=== PATIENT | female | born 1970 | race Caucasian/White ===

== ENCOUNTER → 2017-02-20 | Outpatient (CLI) | payer MEDICAID ==
--- NOTE | 2017-02-20 14:34 | RADIOLOGY REPORT (SQ) ---
EXAM DESCRIPTION: CTA CHEST COMPLETED DATE/TIME: 02/20/2017 2:12 pm REASON FOR STUDY: SOB (R06.02) R06.02 SHORTNESS OF BREATH M25.512 PAIN IN LEFT SHOULDER COMPARISON: None. TECHNIQUE: CT scan of the chest performed using helical scanning technique with dynamic intravenous contrast injection. Images reviewed with lung, soft tissue and bone windows. Reconstructed coronal and sagittal MPR images reviewed. Additional 3 dimensional post-processing performed to develop Maximal Intensity Projection images (MA P). All images stored on PACS. All CT scanners at this facility use dose modulation, iterative reconstruction, and/or weight based d osing when appropriate to reduce radiation dose to as low as reasonably achievable (ALARA). [facility]: Dose Right [facility]: CareDose [facility]: Dose Right [facility]: Teradose 4D [facility]: COH CONTRAST TYPE AND DOSE: contrast/concentration: Isovue 370.00 mg/ml; Total Contrast Delivered: 77.0 ml; Total Saline Delivered: 105.0 ml RENAL FUNCTION: Creatinine 0.8. RADIATION DOSE: Up-to-date CT equipment and radiation dose reduction techniques were employed. CTDIv ol: 1.9 - 15.4 mGy. DLP: 547 mGy-cm. . LIMITATIONS: None. FINDINGS: LUNGS AND PLEURA: No masses, infiltrates, pneumothorax. No pleural effusions, calcificati ons. AORTA AND GREAT VESSELS: No aneurysm or dissection. HEART: No pericardial effusion. PULMONARY ARTERIES: No emboli visualized in the main pulmonary arteries or the segmental branches. HILAR AND MEDIASTINAL STRUCTURES: No identified masses or abnormal nodes. HARDWARE: None in the chest. UPPER ABDOMEN: No significant findings. Limited exam. THYROID AND OTHER SOFT TISSUES: No masses. No adenopathy. BONES: No acute or significant finding. 3D MIPS: Confirm above findings. OTHER: No other significant finding. IMPRESSION: NORMAL CTA OF THE CHEST. NO PULMONARY EMBOLI. TECHNICAL DOCUMENTATION: JOB ID: [id number] Quality ID # [id number]: Final reports with documentation of one or more dose reduction techniques (e.g., Au tomated exposure control, adjustment of the mA and/or kV according to patient size, use of iterative reconstruction technique) 2010 [employer]- All Rights Reserved
--- NOTE | 2017-02-20 15:23 | RADIOLOGY REPORT (SQ) ---
EXAM DESCRIPTION: SHOULDER LEFT 2 OR MORE VIEWS COMPLETED DATE/TIME: 02/20/2017 1:06 pm REASON FOR STUDY: PAIN IN LEFT SHOULDER (M25.512) R06.02 SHORTNESS OF BREATH M25.512 PAIN IN LEFT SHOULDER COMPARISON: None. NUMBER OF VIEWS: Three view. TECHNIQUE: Internal rotation, external rotation, and Y view images acquired of the left shoulder. LIMITATIONS: None. FINDINGS: MINERALIZATION: Normal. BONES: No acute fracture or dislocation. No worrisome bone lesions. No significant osteophytes. GLENOHUMERAL JOINT: No significant findings. ACROMIOCLAVICULAR JOINT: No large osteophytes. SOFT TISSUES: Calcification adjacent to the humeral neck. VISUALIZED RIBS, SPINE, AND LUNG: No other significant finding. OTHER: No other significant finding. IMPRESSION: CALCIFICATION ADJACENT TO THE HUMERAL NECK. NO SIGNIFICANT BONY FINDINGS TECHNICAL DOCUMENTATION: JOB ID: [id number] [employer]- All Rights Reserved
== END ==
LOC: RAD 12:26
PROVIDERS: ATTEND Internal Medicine
DX: R06.02 Shortness of breath (principal); M25.512 Pain in left shoulder
CPT/HCPCS: 71275; 82565

== ENCOUNTER → 2017-07-06 | Day surgery (SDC) | payer MEDICAID ==
--- NOTE | 2017-07-06 16:02 | RADIOLOGY REPORT (SQ) ---
EXAM DESCRIPTION: ARTHRO SHOULDER; FLUORO/NEEDLE PLACEMENT COMPLETED DATE/TIME: 07/06/2017 2:49 pm REASON FOR STUDY: ADHESIVE CAPSULITIS OF LEFT SHOULDER M75.02 ADHESIVE CAPSULITIS OF LEFT SHOULDER COMPARISON: Left shoulder plain films 02/20/2017 FLUOROSCOPY TIME: 0.4 minutes 1 digital radiographic image saved to PACS. LIMITATIONS: None. PROCEDURE: Procedure, risks, benefits and alternatives explained to patient who then gave written co nsent. The posterior left shoulder was marked and a time out was called for correct procedure verific ation. Posterior entry site marked using fluoroscopic guidance. Shoulder prepped and draped using s terile technique. Local anesthesia achieved using 8 mL of 1% lidocaine injection. 22 gauge spinal n eedle introduced into the joint space under direct fluoroscopic visualization. Non-ionic contrast ins tilled to confirm intra-articular position. Dilute gadolinium solution then injected. Needle removed and entry site covered with sterile bandage. No immediate complications noted. TECHNIQUE: Digital images acquired during fluoroscopy and stored on PACS. Patient immediately take n to the MR suite for additional imaging. INJECTION LOCATION: Posterior left shoulder. CONTRAST TYPE AND AMOUNT: 0.5 mL of Isovue-300 was injected to confirm intra-articular needle placeme nt. 10 mL of dilute gadolinium was injected for MR arthrogram IMPRESSION: SUCCESSFUL NEEDLE PLACEMENT AND INJECTION FOR LEFT SHOULDER MR ARTHROGRAM USING POSTERIO R APPROACH. COMMENT: Quality ID [id number]: Final reports for procedures using fluoroscopy that document radiation exp osure indices, or exposure time and number of fluorographic images (if radiation exposure indices are not available) TECHNICAL DOCUMENTATION: JOB ID: [id number] [employer]- All Rights Reserved
--- NOTE | 2017-07-07 08:22 | RADIOLOGY REPORT (SQ) ---
EXAM DESCRIPTION: MRI LT UPPER JOINT WITH COMPLETED DATE/TIME: 07/06/2017 3:26 pm REASON FOR STUDY: ADHESIVE CAPSULITIS OF LEFT SHOULDER M75.02 ADHESIVE CAPSULITIS OF LEFT SHOULDER COMPARISON: Radiographs from January. TECHNIQUE: Left shoulder images acquired and stored on PACS. Oblique coronal, oblique sagittal, and axial imaging to include fat sensitive sequences as T1, water sensitive sequences as FST2/STIR, and c ontrast sensitive sequences as FST1. LIMITATIONS: Mild motion, see below. FINDINGS: BONE MARROW: No marrow edema. Extensive fracture deformity through the anterior inferior glenoid. Regional small loose fragments. Loss of close to 50% of the glenoid articular surface. Mi ld flattening of the lateral humeral head. JOINT DISTENSION: Adequate. Additional sizable loose body measuring close to 1 cm in the inferior mahnaz int. AC JOINT: No widening. Moderate hypertrophic overgrowth. Slight anterior down slope of the acromion . Subacromial space looks relatively maintained, however. GLENOHUMERAL JOINT: As above. Humeral sided cartilage relatively maintained. ROTATOR CUFF: Mild undersurface fraying throughout the cuff. No full-thickness breech evident. LABRUM AND BICEPS LABRAL COMPLEX: Motion artifact somewhat limits evaluation of the labrum on the kaur coronal images. There appears to be at least some low grade fraying. No biceps disruption or dislo cation. There are loose bodies in the biceps sheath. INFERIOR LABRAL COMPLEX: Extensive angel Bankart injury throughout the anterior inferior glenoid with associated loss of anterior labral tissue relatively diffusely. ADJACENT SOFT TISSUES: No regional mass or axillary dissection. OTHER: No other significant finding. IMPRESSION: 1. Extensively abnormal glenoid, presumably related to the history of anterior dislocat ions. Loss of a large portion of the glenoid articular surface anteriorly and inferiorly. Numerous loose bodies in the joint. 2. Probable fraying in the superior labrum. Loose bodies are also noted in the biceps sheath. Biceps tendon intact. 3. AC arthropathy. TECHNICAL DOCUMENTATION: JOB ID: [id number] [employer]- All Rights Reserved
== END ==
LOC: RAD 13:49
PROVIDERS: ATTEND Orthopaedic Surgery
PROC: BP09ZZZ Plain Radiography of Left Shoulder (ICD-10-PCS; principal; 2017-07-06)
DX: M75.02 Adhesive capsulitis of left shoulder (principal); M19.012 Primary osteoarthritis, left shoulder; M24.012 Loose body in left shoulder
CPT/HCPCS: 73222; 73040; 77002; A9576

== ENCOUNTER → 2017-08-04 | Outpatient (CLI) | payer MEDICAID ==
--- NOTE | 2017-08-04 14:25 | RADIOLOGY REPORT (SQ) ---
EXAM DESCRIPTION: HAND LEFT 3 VIEWS COMPLETED DATE/TIME: 08/04/2017 1:40 pm REASON FOR STUDY: PAIN IN LEFT FINGER(S) M79.645 PAIN IN LEFT FINGER(S) COMPARISON: None. EXAM PARAMETERS: NUMBER OF VIEWS: Three views. TECHNIQUE: AP, lateral and oblique radiographic images acquired of the left hand. LIMITATIONS: None. FINDINGS: MINERALIZATION: Normal. BONES: No acute fracture or dislocation. No worrisome bone lesions. JOINTS: Joint space narrowing and bony spurring at the left 1st carpometacarpal joint from osteoarthr itis. SOFT TISSUES: No soft tissue swelling. No foreign body. OTHER: No other significant finding. IMPRESSION: No acute fracture or malalignment. Osteoarthritis at the 1st carpometacarpal joint TECHNICAL DOCUMENTATION: JOB ID: [id number] [employer]- All Rights Reserved
== END ==
LOC: OD 13:22
PROVIDERS: ATTEND Internal Medicine
DX: M79.645 Pain in left finger(s) (principal); M19.042 Primary osteoarthritis, left hand

== ENCOUNTER 2017-08-17 05:27 | Day surgery (SDC) | payer MEDICAID ==
[~2017-08-17 05:27] MED LIST: CEFAZOLIN 2 GM/D5W RTU 2 GM/50 ML RTUPB IV PRN
[2017-08-17] MEDS ORDERED: ALBUTEROL SULFATE 0.083% NEB 2.5 MG/3 ML AMPUL NEB ONE (05:55)
[2017-08-17 06:07] LABS: APPEARANCE,URINE CLOUDY; BILIRUBIN,URINE NEGATIVE (NEGATIVE); COLOR,URINE YELLOW; GLUCOSE, URINE NEGATIVE (NEGATIVE); KETONES,URINE NEGATIVE (NEGATIVE); LEUKOCYTE ESTERASE,URINE NEGATIVE (NEGATIVE); NITRITE,URINE NEGATIVE (NEGATIVE); PROTEIN,URINE NEGATIVE (NEGATIVE); UROBILINOGEN,URINE NEGATIVE mg/dL (<2.0)
--- NOTE | 2017-08-17 06:40 | RADIOLOGY REPORT (SQ) ---
EXAM DESCRIPTION: CHEST SINGLE VIEW CLINICAL HISTORY: preop COMPARISON: 04/09/2013 FINDINGS: Single frontal view of the chest. The cardiomediastinal silhouette has normal size and contour. No consolidation, pneumothorax, or pleural effusion. No displaced rib fractures identified. Upper abdominal soft tissues are unremarkable. Elevation the right hemidiaphragm is unchanged. IMPRESSION: 1. No acute pulmonary process identified.
[2017-08-17 06:48] LABS: ABSOLUTE BASOPHILS # (AUTO) 0.1 10^3/uL (0.0-0.2); ABSOLUTE EOSINOPHILS # (AUTO) 0.3 10^3/uL (0.0-0.6); ABSOLUTE LYMPHOCYTES (AUTO) 2.2 10^3/uL (0.5-4.7); ABSOLUTE MONOCYTES (AUTO) 0.6 10^3/uL (0.1-1.4); ABSOLUTE NEUT (AUTO) 6.5 10^3/uL (1.7-8.2); BASOPHILS % (AUTO) 1.5 % (0-2); EOSINOPHILS % (AUTO) 3.2 % (0-6); HEMATOCRIT 41.2 % (36.0-47.0); HEMOGLOBIN 14.1 g/dL (12.0-15.5); LYMPHOCYTES % (AUTO) 22.7 % (13-45); MEAN CORPUSCULAR HEMOGLOBIN 28.4 pg (27.0-33.4); MEAN CORPUSCULAR HGB CONC 34.1 g/dL (32.0-36.0); MEAN CORPUSCULAR VOLUME 83 fl (80-97); MONOCYTES % (AUTO) 5.8 % (3-13); PLATELET COUNT 262 10^3/uL (150-450); RED BLOOD COUNT 4.94 10^6/uL (3.72-5.28); SEGMENTED NEUTROPHILS % (AUTO) 66.8 % (42-78); TOTAL CELLS COUNTED % (AUTO) 100 %; WHITE BLOOD COUNT 9.7 10^3/uL (4.0-10.5)
[2017-08-17] MEDS ORDERED: BUPIVACAINE HCL 0.5 % INJ/PF 30 ML SDV ONE (06:49)
[2017-08-17] MEDS ORDERED: EPINEPHRINE INJ/PF 1 MG/1 ML AMPULE ONE (06:50)
[2017-08-17 06:58] LABS: ANION GAP 11 (5-19); BLOOD UREA NITROGEN 15 mg/dL (7-20); CALCIUM 9.5 mg/dL (8.4-10.2); CARBON DIOXIDE 21 mmol/L (22-30); CHLORIDE 105 mmol/L (98-107); GLUCOSE 115 mg/dL (75-110); POTASSIUM 3.9 mmol/L (3.6-5.0); SODIUM 137.2 mmol/L (137-145)
[2017-08-17] MEDS ORDERED: FENTANYL CITRATE INJ/PF 100 MCG/2 ML AMPUL ONE ×2 (07:28)
[2017-08-17] MEDS ORDERED: HYDROMORPHONE HCL INJ/PF 2 MG/ML AMPULE ONE (07:28)
[2017-08-17] MEDS ORDERED: MIDAZOLAM 2 MG/2 ML INJ ONE (07:28)
[2017-08-17] MEDS ORDERED: PROPOFOL INJ 200 MG/20 ML VIAL IV ONE (07:29)
[2017-08-17] MEDS ORDERED: ACETAMINOPHEN 100 ML IV ONE (07:29)
[2017-08-17] MEDS ORDERED: ONDANSETRON HCL INJ/PF 4 MG/2 ML SDV ONE (07:29)
[2017-08-17] MEDS ORDERED: EPHEDRINE SULFATE INJ 50 MG/1 ML AMPULE ONE (07:29)
[2017-08-17] MEDS ORDERED: PROMETHAZINE HCL INJ 25 MG/1 ML VIAL IV PRN ×2 (09:02)
[2017-08-17] MEDS ORDERED: OXYCODONE-ACETAMINOPHEN 5-325 MG TABLET PO PRN ×2 (09:02)
[2017-08-17] MEDS ORDERED: DIPHENHYDRAMINE HCL 50 MG/ML VIAL IV PRN (09:02)
[2017-08-17] MEDS ORDERED: MORPHINE SULFATE 10 MG/ML INJ IV PRN (09:02)
[2017-08-17] MEDS ORDERED: FENTANYL CITRATE INJ/PF 100 MCG/2 ML AMPUL IV PRN ×3 (09:02)
[2017-08-17] MEDS ORDERED: MEPERIDINE HCL/PF INJ 25 MG/1 ML DISP.SYRIN IV PRN (09:02)
--- NOTE | 2017-08-17 09:48 | Operative Report ---
Operative Report DATE OF SURGERY: 08/17/17 PREOPERATIVE DIAGNOSIS: Left shoulder recurrent instability. Bony Bankart. Osteoarthritis glenohumeral joint POSTOPERATIVE DIAGNOSIS: Same plus loose bodies x 3 OPERATION: Left shoulder arthroscopy with extensive debridement. labral repair 4 anchors. Removal of loose bodies 3 SURGEON: JASMYN NELSON ANESTHESIA: GA TISSUE REMOVED OR ALTERED: Loose bodies COMPLICATIONS: None ESTIMATED BLOOD LOSS: 10 mL INTRAOPERATIVE FINDINGS: As above PROCEDURE: Patient was brought to the operating room after receiving preoperative antibiotics then, she was induced and intubated in supine position. Patient was laying on the pegboard and the patient was placed in the lateral decubitus position with an axillary roll applied. After securing her on the pegboard we then proceeded to prep and drape the left shoulder in a normal sterile surgical fashion. Timeout was done identifying the left shoulder to correct site. The extremity was placed on 10 pounds of traction after looking it up with a lateral arm distractor device. Spinal needle was introduced into the glenohumeral joint and distended with sterile saline solution via the posterior portal. 11 blade was used to establish the posterior portal and the cannula was introduced. Had a return of fluid showing proper placement of the cannula. Camera was introduced and then under direct visualization we were able to establish anterior portal and placed a blue cannula. Probe was used to show the loose bodies as well as the osteoarthritis of the glenoid and humeral head. Also probed the labral tear and remanent of the capsule. I proceeded to remove the loose bodies first and then used a labral elevator to clean off the remaining glenoid. I visualize part of the bony Bankart that was retracted medially and was fixed and unable to release to do any type of bony Bankart repair. The fragment was also old in nature. I proceeded to actually perform my capsulorrhaphy using a suture passer curved to the right and the capture the inferior capsule ligament and labrum. I was able to feel a suture and secured it in a cinch type manner. This was fed through a push lock and then I proceeded to use my drill guide. I drilled successfully and make sure that I had bone throughout the drilling process. Once I hit the stop I then removed and then secured the push lock into the predrilled hole. I secured the labrum and the tiny and then with slight tapping was able to hammer the push lock into the hole. Once I was flush remove the disposable portion and then cut the remaining strands with a arthroscopic cutter. I repeated this process another 3 times. A total of 4 anchors were applied. Of note inferiorly patient had capsule with repairing but superiorly there was only labral tissue with no capsule to close the volume successfully. She already had a deficit on the glenoid rim. A probe was used to check my fixation of the labrum and pictures were taken showing my fixation. I used a 4 oh shaver then to debride some of the synovium as well as the humeral head and glenoid face due to the articular cartilage damage and exposed bone. She had grade 4 and grade 3 changes of both aspects. The long head of the biceps was intact. The rotator cuff is intact. No more loose bodies were visualized. At this point fluid from the shoulder was removed and then instruments were removed. 3-0 nylon was used to close the 2 portal sites. Xeroform and 4 x 4 were applied followed by ABD and then Medipore tape. Weights were removed,traction was taken off and then the patient was undraped. Patient was placed in a sling. Then transition to supine position where she was extubated and sent to PACU in a stable condition.
--- NOTE | 2017-08-17 09:50 | PDOC DISCHARGE SUMMARY ---
Discharge Summary (SDC) - Discharge Final Diagnosis: Status post left shoulder extensive debridement, labral repair, removal of loose bodies Date of Surgery: 08/17/17 Discharge Date: 08/17/17 Condition: Good Treatment or Instructions: Patient is instructed to follow up in 10-14 days. Patient instructed to remove dressing in 4 days then can shower and apply Band- Aids as needed. Patient to wear sling for comfort but okay to remove for shower and pendulum exercises. Pendulum exercises are instructed to be done 3 times a day ideally with breakfast, lunch, dinners and showers. Patient instructed to call if there is any signs of redness or drainage fevers or chills. Prescriptions: Oxycodone HCl/Acetaminophen [Percocet 5-325 mg Tablet] 1 - 2 tab PO ASDIR PRN # 40 tablet PRN Reason: Referrals: AMIE BORREGO MD [Primary Care Provider] - Discharge Diet: As Tolerated Respiratory Treatments at Home: Deep Breathing/Coughing Discharge Activity: No Lifting/Push/Pulling, Slowly Increase Activity, Walk Frequently Home Care Assistance: None Needed Report the Following to Your Physician Immediately: Shortness of Breath, Vomiting, Increase in Pain, Fever over 101 Degrees, Unusual Bleeding, Redness, Swelling, Warmth, Increased Soreness, Drainage-Yellow, Drainage-Mcginnis, Drainage- Green, Drainage-Foul Smelling
[2017-08-17] MEDS: FENTANYL CITRATE INJ/PF 100 MCG/2 ML AMPUL ONE ×2 (10:15→10:20)
[2017-08-17] MEDS ORDERED: METOCLOPRAMIDE HCL INJ/PF 10 MG/2 ML SDV ONE (10:47)
[2017-08-17] MEDS ORDERED: ROCURONIUM BROMIDE INJ 50 MG/5 ML VIAL IV ONE (11:43)
[2017-08-17] MEDS ORDERED: DEXAMETHASONE SOD PHOSPHATE INJ 4 MG/1 ML VIAL ONE (11:43)
[2017-08-17] MEDS ORDERED: SUCCINYLCHOLINE CHLORIDE INJ 200 MG/10 ML VIAL ONE (11:43)
[2017-08-17] MEDS ORDERED: NEOSTIGMINE METHYLSULFATE 10 MG/10 ML VIAL ONE (11:43)
[2017-08-17] MEDS ORDERED: PHENYLEPHRINE HCL INJ/PF 10 MG/1 ML SDV ONE (11:43)
[2017-08-17] MEDS ORDERED: GLYCOPYRROLATE INJ 0.4 MG/2 ML VIAL ONE (11:43)
--- NOTE | 2017-08-17 11:57 | EKG REPORT ---
SEVERITY:- OTHERWISE NORMAL ECG - SINUS TACHYCARDIA : Confirmed by: Aurelio Flores 17-Aug-2017 11:57:10
[2017-08-17 14:26] VITALS: BP 144/84
== END 2017-08-17 14:10 | disposition home or self-care (01) ==
LOC: OROUT 05:27
PROVIDERS: ATTEND Orthopaedic Surgery
PROC: 0RCK4ZZ Extirpation of Matter from Left Shoulder Joint, Percutaneous Endoscopic Approach (ICD-10-PCS; 2017-08-17)
PROC: 0RQK4ZZ Repair Left Shoulder Joint, Percutaneous Endoscopic Approach (ICD-10-PCS; 2017-08-17)
PROC: 0RBK4ZZ Excision of Left Shoulder Joint, Percutaneous Endoscopic Approach (ICD-10-PCS; principal; 2017-08-17 07:30)
DX: S43.492A Other sprain of left shoulder joint, initial encounter (principal); X58.XXXA Exposure to other specified factors, initial encounter; M19.012 Primary osteoarthritis, left shoulder; M25.312 Other instability, left shoulder; M24.012 Loose body in left shoulder; M25.512 Pain in left shoulder; I10 Essential (primary) hypertension; F17.210 Nicotine dependence, cigarettes, uncomplicated; G47.33 Obstructive sleep apnea (adult) (pediatric); E66.9 Obesity, unspecified; Z68.41 Body mass index [BMI] 40.0-44.9, adult; Z79.899 Other long term (current) drug therapy; Z85.3 Personal history of malignant neoplasm of breast
CPT/HCPCS: 36415; 85025; 81025; 80048; 81001; 71045; 93005; 93010; 29823; 29806; C1713; J2250; J3490 ×3; J1100; J0171; J3010; J2765; J1170; J2370; J0330; J2405; J2704; J0690; J0131; 1630

== ENCOUNTER → 2017-12-19 | Outpatient (CLI) | payer MEDICAID ==
--- NOTE | 2017-12-19 15:55 | RADIOLOGY REPORT (SQ) ---
EXAM DESCRIPTION: CT LT UPPER EXTREMITY WITHOUT COMPLETED DATE/TIME: 12/19/2017 1:10 pm REASON FOR STUDY: M25.312 OTHER INSTABILITY, LEFT SHOULDER M25.312 OTHER INSTABILITY, LEFT SHOULDER COMPARISON: MR arthrogram left shoulder 07/06/2017 TECHNIQUE: Axial imaging performed through the leftshoulder with reformatted oblique coronal and obl ique sagittal imaging windowed for bone and soft tissues. All CT scanners at this facility use dose modulation, iterative reconstruction, and/or weight based d osing when appropriate to reduce radiation dose to as low as reasonably achievable (ALARA). [facility]: Dose Right [facility]: CareDose [facility]: Dose Right [facility]: Teradose 4D [facility]: [employer] RADIATION DOSE: CT Rad equipment meets quality standard of care and radiation dose reduction techniq ues were employed. CTDIvol: 29.6 mGy. DLP: 856 mGy-cm. mGy. LIMITATIONS: None. FINDINGS: Normal bone density without lytic or blastic lesions. There is grossly normal alignment at the glenohumeral joint. The bony glenoid is abnormal, there is an old healed fracture of the anterior half of the bony glenoi d with depression of the articular surface best shown on axial images 35-39. There are also tracts f or surgical tacks along the anterior inferior bony glenoid on axial image 37 and coronal image 47. Type 2 acromion with moderate acromioclavicular joint bony spurring and joint space narrowing. This mildly narrows the subacromial space. Non arthrogram images of the rotator cuff demonstrate grossly normal thickness. No muscle atrophy on sagittal reconstruction image 41. Calcification of the extra-articular long head biceps tendon axial image 43. Limited view of the left upper lobe, left upper ribs unremarkable. IMPRESSION: Abnormal anterior inferior glenoid labrum with depression of the articular surface and f aintly radiopaque tracks for glenoid labrum anchors TECHNICAL DOCUMENTATION: JOB ID: [id number] Quality ID # 436: Final reports with documentation of one or more dose reduction techniques (e.g., Au tomated exposure control, adjustment of the mA and/or kV according to patient size, use of iterative reconstruction technique) 2010 [employer]- All Rights Reserved Reading location - IP/workstation name: [email or web address]
== END ==
LOC: RAD 14:32
PROVIDERS: ATTEND Physician Assistant Medical
DX: M25.312 Other instability, left shoulder (principal)

== ENCOUNTER → 2019-05-31 | Outpatient (CLI) | payer MEDICAID ==
--- NOTE | 2019-05-31 14:23 | RADIOLOGY REPORT (SQ) ---
EXAM DESCRIPTION: CHEST PA/LATERAL COMPLETED DATE/TIME: 05/31/2019 1:40 pm REASON FOR STUDY: SHORTNESS OF BREATH COMPARISON: 04/09/2013 EXAM PARAMETERS: NUMBER OF VIEWS: two views TECHNIQUE: Digital Frontal and Lateral radiographic views of the chest acquired. RADIATION DOSE: NA LIMITATIONS: none FINDINGS: LUNGS AND PLEURA: No opacities, masses or pneumothorax. No pleural effusion. Stable eleva tion of the right hemidiaphragm. MEDIASTINUM AND HILAR STRUCTURES: No masses or contour abnormalities. HEART AND VASCULAR STRUCTURES: Heart normal size. No evidence for failure. BONES: There are postsurgical changes now present the left shoulder with prior total joint replacemen t. HARDWARE: None in the chest. OTHER: No other significant finding. IMPRESSION: NO SIGNIFICANT RADIOGRAPHIC FINDING IN THE CHEST. TECHNICAL DOCUMENTATION: JOB ID: [id number] [employer]- All Rights Reserved Reading location - IP/workstation name: [email or web address]
== END ==
LOC: OD 13:23
PROVIDERS: ATTEND Registered Nurse
DX: R06.02 Shortness of breath (principal)
CPT/HCPCS: 71046

== ENCOUNTER 2019-09-06 16:16 | Inpatient (IN) | payer SELFPAY ==
--- NOTE | 2019-09-06 17:11 | ER Document Report ---
ED Medical Screen (RME) - General Stated Complaint: DIFFICULTY BREATHING Time Seen by Provider: 09/06/19 17:08 Primary Care Provider: POLINA ZHANG FNP-C [Primary Care Provider] - Follow up as needed TRAVEL OUTSIDE OF THE [place] IN LAST 30 DAYS: No - HPI Notes: 09/06/19 17:10 Patient is a 49-year-old female with no significant past medical history who presents complaining of 2 separate complaints. The first is she has been coughing and wheezing for the past couple weeks and has gone through antibiotics. She just finished Levaquin 3 days ago. Patient then started having lower pelvic pain and burning with urination recently as well. No fever. I have treated and performed a rapid initial assessment of this patient. A comprehensive ED assessment and evaluation of the patient, analysis of test results and completion of medical decision making process will be conducted by additional ED providers. PHYSICAL EXAMINATION: GENERAL: Well-appearing, well-nourished and in no acute distress. A&Ox4. Answers questions appropriately. Lungs: Wheezing throughout. Abdomen: Limited exam, mild tenderness lower pelvic area. - Related Data Allergies/Adverse Reactions: Penicillins Allergy (Verified 09/06/19 17:07) Generalized rash Past Medical History - Past Medical History Cardiac Medical History: Reports: Hx Hypertension - ON MEDS Denies: Hx Coronary Artery Disease, Hx Heart Attack Pulmonary Medical History: Denies: Hx Asthma, Hx Bronchitis, Hx COPD, Hx Pneumonia Neurological Medical History: Denies: Hx Cerebrovascular Accident, Hx Seizures Musculoskeltal Medical History: Reports Hx Arthritis - NECK, HANDS - Immunizations Hx Diphtheria, Pertussis, Tetanus Vaccination: No Physical Exam - Vital signs Vitals: Temp Pulse Resp BP Pulse Ox 99.9 F 102 H 18 153/89 H 95 09/06/19 16:17 09/06/19 16:17 09/06/19 16:17 09/06/19 16:17 09/06/19 16:17 Course - Vital Signs Vital signs: Temp Pulse Resp BP Pulse Ox 99.9 F 102 H 18 153/89 H 95 09/06/19 16:17 09/06/19 16:17 09/06/19 16:17 09/06/19 16:17 09/06/19 16:17 Doctor's Discharge - Discharge Referrals: KINNER,POLINA, [employer] SAFE-C [Primary Care Provider] - Follow up as needed
[2019-09-06] MEDS ORDERED: IPRATROPIUM/ALBUTEROL 0.5-2.5 MG/3 ML AMPUL NEB ONE ×2 (17:14→23:23)
[2019-09-06] MEDS ORDERED: METHYLPREDNISOLONE INJ 125 MG/2 ML SDV IM ONE (17:14)
--- NOTE | 2019-09-06 17:56 | RADIOLOGY REPORT (SQ) ---
EXAM DESCRIPTION: CHEST 2 VIEWS COMPLETED DATE/TIME: 09/06/2019 5:40 pm REASON FOR STUDY: cough COMPARISON: 05/31/2019 NUMBER OF VIEWS: Two view. TECHNIQUE: Frontal and lateral radiographic views of the chest acquired. LIMITATIONS: None. FINDINGS: LUNGS AND PLEURA: Peribronchial cuffing and interstitial changes. No consolidation, effus ion, or pneumothorax. MEDIASTINUM AND HILAR STRUCTURES: Stable. HEART AND VASCULAR STRUCTURES: Heart normal in size and contour. BONES: No acute findings. HARDWARE: None in the chest. OTHER: No other significant finding. IMPRESSION: REACTIVE AIRWAY DISEASE VERSUS VIRAL SYNDROME. NO CONSOLIDATION. TECHNICAL DOCUMENTATION: JOB ID: [id number] [place]-72 2010 [employer]- All Rights Reserved Reading location - IP/workstation name: [email or web address]
[2019-09-06 18:03] LABS: ABSOLUTE LYMPHOCYTES (AUTO) 0.5 10^3/uL (0.5-4.7); ABSOLUTE MONOCYTES (AUTO) 0.4 10^3/uL (0.1-1.4); BASOPHILS % (AUTO) 0.4 % (0-2); HEMATOCRIT 40.4 % (36.0-47.0); HEMOGLOBIN 13.8 g/dL (12.0-15.5); LYMPHOCYTES % (AUTO) 9.7 % (13-45); MEAN CORPUSCULAR HEMOGLOBIN 27.7 pg (27.0-33.4); MEAN CORPUSCULAR VOLUME 81 fl (80-97); MONOCYTES % (AUTO) 7.3 % (3-13); PLATELET COUNT 218 10^3/uL (150-450); RED BLOOD COUNT 4.97 10^6/uL (3.72-5.28); RED CELL DISTRIBUTION WIDTH 15.9 % (11.5-14.0); SEGMENTED NEUTROPHILS % (AUTO) 82.6 % (42-78); TOTAL CELLS COUNTED % (AUTO) 100 %; WHITE BLOOD COUNT 4.8 10^3/uL (4.0-10.5)
[2019-09-06 18:09] LABS: APPEARANCE,URINE CLEAR; BILIRUBIN,URINE NEGATIVE (NEGATIVE); COLOR,URINE YELLOW; GLUCOSE, URINE NEGATIVE (NEGATIVE); KETONES,URINE NEGATIVE (NEGATIVE); PROTEIN,URINE 30 mg/dL (NEGATIVE); URINE SPECIFIC GRAVITY 1.015; UROBILINOGEN,URINE NEGATIVE mg/dL (<2.0)
[2019-09-06 18:17] LABS: ALBUMIN 4.1 g/dL (3.5-5.0); ALKALINE PHOSPHATASE 62 U/L (38-126); ANION GAP 13 (5-19); ASPARTATE AMINO TRANSFERASE 38 U/L (14-36); BILIRUBIN,DIRECT 0.3 mg/dL (0.0-0.4); BILIRUBIN,TOTAL 0.4 mg/dL (0.2-1.3); BLOOD UREA NITROGEN 15 mg/dL (7-20); CALCIUM 8.6 mg/dL (8.4-10.2); CARBON DIOXIDE 26 mmol/L (22-30); CHLORIDE 97 mmol/L (98-107); GLUCOSE 100 mg/dL (75-110); POTASSIUM 4.2 mmol/L (3.6-5.0); TOTAL PROTEIN 7.9 g/dL (6.3-8.2)
[2019-09-06] MEDS ORDERED: ALBUTEROL SULFATE 0.083% NEB 2.5 MG/3 ML AMPUL NEB ONE (20:42)
--- NOTE | 2019-09-06 20:47 | ER Document Report ---
ED General - General Chief Complaint: Shortness Of Breath Stated Complaint: DIFFICULTY BREATHING Time Seen by Provider: 09/06/19 17:08 Primary Care Provider: POLINA ZHANG FNP-C [Primary Care Provider] - Follow up as needed Notes: CHIEF COMPLAINT: Cough with shortness of breath for 1 month HPI: 49-year-old female presenting to the emergency department complaining of cough and shortness of breath for 1 month. Patient states she has been on 3 different antibiotics most recently finishing Levaquin 3 days ago. Patient states that she is still coughing. She went to an outside ER 2 days ago, states she had a chest x-ray that was negative for acute findings was placed on steroids and albuterol at home which she states she is taking. She still reports shortness of breath and significant coughing and spasm. Subjective low- grade fevers at home. Patient initially during the triage process also indicated she was having some intermittent pelvic pain over the last month. She denies vaginal discharge. She denies pelvic pain at this time. Denies vaginal bleeding. Denies back pain. ROS: See HPI - all other systems were reviewed and are otherwise negative Constitutional: Subjective fever Eyes: no drainage, no blurred vision ENT: Positive runny nose, no sore throat Cardiovascular: no chest pain Resp: Positive SOB, positive cough GI: no vomiting, no diarrhea, no abdominal pain at this time : no dysuria Integumentary: no rash Allergy: no hives Musculoskeletal: no extremity pain or swelling Neurological: no numbness/tingling, no weakness MEDICATIONS: I agree with the patient medications as charted by the RN. ALLERGIES: I agree with the allergies as charted by the RN. PAST MEDICAL HISTORY/PAST SURGICAL HISTORY: Reviewed and agree as charted by RN. SOCIAL HISTORY: Reviewed and agree as charted by RN. FAMILY HISTORY: No significant familial comorbid conditions directly related to patient complaint EXAM: Reviewed vital signs as charted by RN. CONSTITUTIONAL: Alert and oriented and responds appropriately to questions. Well-appearing; well-nourished, mild distress secondary to cough HEAD: Normocephalic; atraumatic EYES: PERRL; Conjunctivae clear, sclerae non-icteric ENT: normal nose; positive clear rhinorrhea; moist mucous membranes; pharynx without lesions noted, no uvula edema or deviation, no tonsillar hypertrophy, phonation normal NECK: Supple without meningismus; non-tender; no cervical lymphadenopathy, no masses CARD: RRR; no murmurs, no clicks, no rubs, no gallops; symmetric distal pulses RESP: Normal chest excursion without splinting or tachypnea; breath sounds clear and equal bilaterally; no wheezes, no rhonchi, no rales, pulse oximetry 95% on room air not hypoxic. Spastic cough is noted ABD/GI: obese, normal bowel sounds; non-distended; soft, non-tender, no rebound, no guarding; no palpable organomegaly or masses. BACK: The back appears normal and is non-tender to palpation, there is no CVA tenderness EXT: Normal ROM in all joints; non-tender to palpation; no cyanosis, no effusions, no edema SKIN: Normal color for age and race; warm; dry; good turgor; no acute lesions noted NEURO: Moves all extremities equally; Motor and sensory function intact PSYCH: The patient's mood and manner are appropriate. Grooming and personal hygiene are appropriate. MDM: 49-year-old female presenting with acute bronchospasm has been ongoing over the last month. Finished 3 courses of antibiotics most recently Levaquin. Initial screening process obtain chest x-ray, reactive airway disease. She has no active wheezing but does have moderate spasm with coughing and mild dyspnea because she coughs. Will give breathing treatment, she is on steroids currently. Patient has no abdominal or pelvic pain at this time. Urine does not show evidence of infection, patient is not . She has had a transvaginal ultrasound awaiting results. She denies thoughts of pelvic infection, it is less likely as she has no discomfort at this time and no complaints of discharge. She declines pelvic exam at this time. TRAVEL OUTSIDE OF THE [place] IN LAST 30 DAYS: No - Related Data Allergies/Adverse Reactions: Penicillins Allergy (Verified 09/06/19 21:20) Generalized rash Past Medical History - Social History Smoking Status: Former Smoker Family History: Reviewed & Not Pertinent Patient has suicidal ideation: No Patient has homicidal ideation: No - Past Medical History Cardiac Medical History: Reports: Hx Hypertension - ON MEDS Denies: Hx Coronary Artery Disease, Hx Heart Attack Pulmonary Medical History: Denies: Hx Asthma, Hx Bronchitis, Hx COPD, Hx Pneumonia Neurological Medical History: Denies: Hx Cerebrovascular Accident, Hx Seizures Musculoskeletal Medical History: Reports Hx Arthritis - NECK, HANDS - Immunizations Hx Diphtheria, Pertussis, Tetanus Vaccination: No Physical Exam - Vital signs Vitals: Temp Pulse Resp BP Pulse Ox 99.9 F 102 H 18 153/89 H 95 09/06/19 16:17 09/06/19 16:17 09/06/19 16:17 09/06/19 16:17 09/06/19 16:17 Course - Re-evaluation Re-evalutation: 09/06/19 21:20 Patient is noted to have a left ovarian cyst likely the cause of her pelvic pain. No torsion. Awaiting breathing treatment, RSV and influenza swabs 09/06/19 22:38 Patient feels better after breathing treatment, much less spasm in the cough and with speaking. Will discharge home to follow-up with PCP, she states she goes to [facility]. Will refer to [facility] for follow-up of the ovarian cyst. Patient is requesting Robitussin with codeine for cough at night. We will continue albuterol, prednisone, Tessalon Perles 09/06/19 22:39 RSV test per the lab apparently is a send out patient is aware - Vital Signs Vital signs: Temp Pulse Resp BP Pulse Ox 99.9 F 102 H 18 153/89 H 95 09/06/19 16:17 09/06/19 16:17 09/06/19 16:17 09/06/19 16:17 09/06/19 16:17 - Laboratory Result Diagrams: 09/06/19 17:26 09/06/19 17:26 Laboratory results interpreted by me: 09/06/19 09/06/19 09/06/19 17:26 17:26 17:26 RDW 15.9 H Lymph % (Auto) 9.7 L Seg Neutrophils % 82.6 H Sodium 136.1 L Chloride 97 L AST 38 H Urine Protein 30 H Urine Blood MODERATE H Discharge - Discharge Clinical Impression: Acute bronchospasm due to viral infection, Ovarian cyst, left Condition: Stable Disposition: HOME, SELF-CARE Additional Instructions: 1. take the medications as prescribed, if you were prescribed a cough medicine, no driving on narcotics 2. if you were prescribed an Albuterol inhaler, use it as instructed, 2 puffs every 4 hours as needed for cough/wheezing 3. call your primary care provider as soon as possible to schedule recheck appt. in the office. 4. return to the ED for any worsening condition, shortness of breath or cont inued fever that does not resolve with Motrin/Tylenol 5. follow up with [facility] regarding the ovarian cyst Prescriptions: Guaifenesin/Codeine Phos [Robitussin-AC Syrup 59 ml] 10 ml PO QHS PRN #100 ml PRN Reason: Benzonatate [Tessalon Perles 100 mg Capsule] 100 mg PO Q8HP PRN #30 capsule PRN Reason: Albuterol Sulfate [Ventolin 0.083% Neb 2.5 mg/3 mL Ampul] 1 vial NEB Q4 PRN #1 PRN Reason: Referrals: POLINA ZHANG FNP-C [Primary Care Provider] - Follow up as needed
--- NOTE | 2019-09-06 21:04 | RADIOLOGY REPORT (SQ) ---
EXAM DESCRIPTION: [facility]: US PELVIS TRANSVAGINAL CLINICAL HISTORY: 49 years Female; pelvic pain; TECHNIQUE: Endovaginal and transabdominal pelvic ultrasound was performed. COMPARISON: None. FINDINGS: Uterus: 9.6 x 5.6 x 7.2 cm, with 20 mm endometrial stripe. No uterine masses. Cervix 3.3 cm long. No focal lesion. Right ovary: Not visualized on transabdominal or transvaginal imaging. Left ovary: 5.7 x 3.6 x 4.5 cm. Simple anechoic cyst 4.3 x 2.6 x 3.4 cm. Normal vascular flow on Doppler. No free fluid. No adnexal masses. IMPRESSION: 1. 4.3 cm simple ovarian cyst. If patient is pre-menopausal, no follow-up imaging is recommended; if patient is post-menopausal, recommend pelvic US follow-up annually. Reference: Radiology 2010 Mar;256(3):943-54 2. Thickened endometrium, but no focal lesions. 3. Right ovary could not be visualized
[2019-09-06 21:22] LABS: A TYPE INFLUENZA AG NEGATIVE (NEGATIVE); B INFLUENZA AG NEGATIVE (NEGATIVE)
[2019-09-07] MEDS ORDERED: ALBUTEROL SULFATE 0.083% NEB 2.5 MG/3 ML AMPUL NEB ONE ×2 (00:29→01:27)
[2019-09-07] MEDS: MAGNESIUM SULFATE/D5W 1 GM/100 ML RTUPB IV SCH ×2 (01:14→01:35)
[2019-09-07 01:20] LABS: ARTERIAL BLOOD BASE EXCESS -2.9 mmol/L; ARTERIAL BLOOD H2CO3 1.03 mmol/L (1.05-1.35); ARTERIAL BLOOD HCO3 21.1 mmol/L (20-24); ARTERIAL BLOOD O2 SATURATION 92.5 % (94-98); ARTERIAL BLOOD PCO2 34.3 mmHg (35-45); ARTERIAL BLOOD PH 7.41 (7.35-7.45); ARTERIAL BLOOD PO2 63.2 mmHg (80-100); ARTERIAL BLOOD TOTAL CO2 22.1 mmol/L (21-25)
[2019-09-07 01:26] LABS: ARTERIAL BLOOD FIO2 ROOM AIR
[2019-09-07] MEDS ORDERED: IPRATROPIUM/ALBUTEROL 0.5-2.5 MG/3 ML AMPUL NEB PRN (03:32)
[2019-09-07] MEDS ORDERED: CHLORPHENIRAMINE MALEATE 4 MG TABLET PO SCH (03:45)
[2019-09-07] MEDS ORDERED: PREDNISONE 20 MG TABLET PO ONE (04:00)
[2019-09-07] MEDS ORDERED: LEVOFLOXACIN 750 MG/D5W RTU 750 MG/150 ML RTUPB IV ONE ×2 (04:00→07:52)
--- NOTE | 2019-09-07 06:26 | PDOC H&P ---
History of Present Illness Admission Date/PCP: 09/07/19 03:39 MARQUEZ PANIAGUA Patient complains of: Shortness of breath and cough History of Present Illness: NARENDRA REECE is a 49 year old female with a past medical history of morbid obesity with a BMI of 42, obstructive sleep apnea, COPD and bronchitis. She presents with 1 month of persistent shortness of breath and paroxysms of productive cough. She has had 3 rounds of antibiotics with minimal relief prompting her to seek evaluation emergency room where she is found to have bilateral wheezing, tachypnea with retractions hypoxia by pulse oximetry and ABG. She received several treatments of albuterol with Atrovent, magnesium and steroids with minimal improvement. She is referred to the hospitalist for admission. She does admit to smoking and perfumes which are triggers of shortness of breath with wheeze and cough she also admits to symptoms worsening at night and some acid reflux. Past Medical History Cardiac Medical History: Reports: Hypertension - ON MEDS Denies: Coronary Artery Disease, Myocardial Infarction Pulmonary Medical History: Denies: Asthma, Bronchitis, Chronic Obstructive Pulmonary Disease (COPD), P neumonia Neurological Medical History: Denies: Seizures Musculoskeltal Medical History: Reports: Arthritis - NECK, HANDS Psychiatric Medical History: Denies: Depression, Tobacco Dependency Hematology: Denies: Anemia Past Surgical History Past Surgical History: Reports: Orthopedic Surgery - left shoulder Social History Information Source: Patient, [facility] Records Smoking Status: Former Smoker Cigarettes Packs Per Day: 0.1 Electronic Cigarette use?: Yes Number of Years Smokin Last Time Smoked: jul 27 2019 Frequency of Alcohol Use: Occasional Hx Recreational Drug Use: No Drugs: None Hx Prescription Drug Abuse: No - Advance Directive Resuscitation Status: Full Code Family History Family History: Hypertension Parental Family History Reviewed: Yes Children Family History Reviewed: Yes Sibling(s) Family History Reviewed.: Yes Medication/Allergy Home Medications: Tamoxifen Citrate 10 mg PO BID 08/08/17 Albuterol Sulfate [Ventolin 0.083% Neb 2.5 mg/3 mL Ampul] 1 vial NEB Q4 PRN #1 09/06/19 Benzonatate [Tessalon Perles 100 mg Capsule] 100 mg PO Q8HP PRN #30 capsule 09/06/19 Guaifenesin/Codeine Phos [Robitussin-AC Syrup 59 ml] 10 ml PO QHS PRN #100 ml 09/06/19 Albuterol Sulfate [Albuterol Sulfate Hfa] 2 puff IH PRN PRN 09/07/19 Albuterol Sulfate [Ventolin 0.083% Neb 2.5 mg/3 ml Ampul] 1 vial NEB Q4 09/07/19 Cetirizine HCl [Zyrtec 10 mg Tablet] 10 mg PO DAILY 09/07/19 Fluticasone Propionate [Flonase Nasal [place] 50 Mcg/[place] 16 gm] 2 sprays NASL Q12 09/07/19 Montelukast Sodium [Singulair 10 mg Tablet] 10 mg PO QHS 09/07/19 Tamoxifen Citrate [Nolvadex 10 Mg Tablet] 10 mg PO DAILY 09/07/19 Allergies/Adverse Reactions: Penicillins Allergy (Verified 09/06/19 21:20) Generalized rash Review of Systems Constitutional: PRESENT: as per HPI Eyes: ABSENT: visual disturbances Ears: ABSENT: hearing changes Cardiovascular: ABSENT: chest pain, dyspnea on exertion, edema, orthropnea, palpitations Respiratory: PRESENT: as per HPI, cough, dyspnea, sputum Gastrointestinal: ABSENT: abdominal pain, constipation, diarrhea, hematemesis, hematochezia, nausea, vomiting Genitourinary: ABSENT: dysuria, hematuria Musculoskeletal: ABSENT: joint swelling Integumentary: ABSENT: rash, wounds Neurological: ABSENT: abnormal gait, abnormal speech, confusion, dizziness, focal weakness, syncope Psychiatric: ABSENT: anxiety, depression, homidical ideation, suicidal ideation Endocrine: ABSENT: cold intolerance, heat intolerance, polydipsia, polyuria Hematologic/Lymphatic: ABSENT: easy bleeding, easy bruising Physical Exam Vital Signs: Temp Pulse Resp BP Pulse Ox 98.8 F 101 H 28 H 138/68 H 91 L 09/07/19 05:00 09/06/19 23:09 09/07/19 04:00 09/07/19 05:00 09/07/19 04:00 Intake & Output 09/05/19 09/06/19 09/07/19 11:59 11:59 11:59 Intake Total 70 Balance 70 Weight 115.3 kg General appearance: PRESENT: cooperative, morbidly obese, well-developed. ABSENT: disheveled Head exam: PRESENT: atraumatic, normocephalic Eye exam: PRESENT: conjunctiva pink, EOMI, PERRLA. ABSENT: scleral icterus Ear exam: PRESENT: normal external ear exam Mouth exam: PRESENT: moist, tongue midline Neck exam: ABSENT: carotid bruit, JVD, lymphadenopathy, thyromegaly Respiratory exam: PRESENT: accessory muscle use, decreased breath sounds, prolonged expiratory phas, retraction, tachypnea, wheezes. ABSENT: rales, rhonchi Cardiovascular exam: PRESENT: RRR. ABSENT: diastolic murmur, rubs, systolic murmur Pulses: PRESENT: normal dorsalis pedis pul Vascular exam: PRESENT: normal capillary refill GI/Abdominal exam: PRESENT: normal bowel sounds, soft. ABSENT: distended, guarding, mass, organolmegaly, rebound, tenderness Rectal exam: PRESENT: deferred Extremities exam: PRESENT: full ROM. ABSENT: calf tenderness, clubbing, pedal edema Neurological exam: PRESENT: alert, awake, oriented to person, oriented to place, oriented to time, oriented to situation, CN II-XII grossly intact. ABSENT: motor sensory deficit Psychiatric exam: PRESENT: appropriate affect, normal mood. ABSENT: homicidal ideation, suicidal ideation Skin exam: PRESENT: dry, intact, warm. ABSENT: cyanosis, rash Results Laboratory Results: 09/06/19 17:26 09/06/19 17:26 09/06/19 09/06/19 09/06/19 17:26 17:26 17:26 WBC 4.8 RBC 4.97 Hgb 13.8 Hct 40.4 MCV 81 MCH 27.7 MCHC 34.0 RDW 15.9 H Plt Count 218 Seg Neutrophils % 82.6 H Carbonic Acid HCO3/H2CO3 Ratio ABG pH ABG pCO2 ABG pO2 ABG HCO3 ABG O2 Saturation ABG Base Excess FiO2 Sodium 136.1 L Potassium 4.2 Chloride 97 L Carbon Dioxide 26 Anion Gap 13 BUN 15 Creatinine 0.59 Est GFR ( Amer) > 60 Glucose 100 Calcium 8.6 Total Bilirubin 0.4 AST 38 H Alkaline Phosphatase 62 Total Protein 7.9 Albumin 4.1 Lipase 82.5 Urine Color YELLOW Urine Appearance CLEAR Urine pH 6.0 Ur Specific [place] 1.015 Urine Protein 30 H Urine Glucose (UA) NEGATIVE Urine Ketones NEGATIVE Urine Blood MODERATE H Urine RBC (Auto) 6 09/07/19 01:10 WBC RBC Hgb Hct MCV MCH MCHC RDW Plt Count Seg Neutrophils % Carbonic Acid 1.03 L HCO3/H2CO3 Ratio 20:1 ABG pH 7.41 ABG pCO2 34.3 L ABG pO2 63.2 L ABG HCO3 21.1 ABG O2 Saturation 92.5 L ABG Base Excess -2.9 FiO2 ROOM AIR Sodium Potassium Chloride Carbon Dioxide Anion Gap BUN Creatinine Est GFR ( Amer) Glucose Calcium Total Bilirubin AST Alkaline Phosphatase Total Protein Albumin Lipase Urine Color Urine Appearance Urine pH Ur Specific [place] Urine Protein Urine Glucose (UA) Urine Ketones Urine Blood Urine RBC (Auto) 09/06/19 17:26 NT-Pro-B Natriuret Pep 124 Impressions: Chest X-Ray 09/06/19 17:12 IMPRESSION: REACTIVE AIRWAY DISEASE VERSUS VIRAL SYNDROME. NO CONSOLIDATION. Transvaginal US 09/06/19 17:12 IMPRESSION: 1. 4.3 cm simple ovarian cyst. If patient is pre-menopausal, no follow-up imaging is recommended; if patient is post-menopausal, recommend pelvic US follow-up annually. Reference: Radiology 2010 Mar;256(3):943-54 2. Thickened endometrium, but no focal lesions. 3. Right ovary could not be visualized Assessment and Plan - Diagnosis (1) Acute bronchitis Is this a current diagnosis for this admission?: Yes Plan: IV Levaquin, flutter valve, incentive spirometry and prednisone (2) Acute respiratory failure with hypoxia Is this a current diagnosis for this admission?: Yes Plan: Secondary to #1, supplemental oxygen (3) Asthma Is this a current diagnosis for this admission?: Yes Plan: Known triggers, albuterol, Atrovent, 3 times daily, trial prednisone and education for trigger avoidance and GERD reduction (4) GERD (gastroesophageal reflux disease) Is this a current diagnosis for this admission?: Yes Plan: Trial of Pepcid and lifestyle modification (5) Ovarian cyst, left Is this a current diagnosis for this admission?: Yes Plan: Symptomatic management (6) Sleep apnea Is this a current diagnosis for this admission?: Yes Plan: BiPAP ordered
[2019-09-07] MEDS ORDERED: PREDNISONE 20 MG TABLET ONE (07:53)
[2019-09-07] MEDS: HEPARIN SOD (PORCINE) 5,000 UNIT/ML 1 ML VIAL SUBCUT SCH ×3 (07:59→21:57)
[2019-09-07] MEDS ORDERED: INFLUENZA QUAD (6MOS+) 2019-20 VAC 0.5 ML SYR IM ONE (08:54)
[2019-09-07] MEDS: IPRATROPIUM/ALBUTEROL 0.5-2.5 MG/3 ML AMPUL NEB SCH ×3 (09:22→23:50)
[2019-09-07] MEDS: TAMOXIFEN CITRATE 10 MG TABLET PO SCH (10:01)
[2019-09-07] MEDS: FAMOTIDINE 20 MG TABLET PO SCH ×2 (10:01→21:56)
[2019-09-07] MEDS: FLUTICASONE NASAL SPRAY 50 MCG/SPRY 120 SPRAY/16 GM NASL SCH ×2 (10:01→21:56)
[2019-09-07] MEDS: CHLORPHENIRAMINE MALEATE 4 MG TABLET PO SCH ×3 (10:01→21:56)
[2019-09-07] MEDS: GUAIFENESIN SYRP 200 MG/10 ML UDC PO PRN ×2 (17:07→22:03)
[2019-09-07] MEDS: PREDNISONE 20 MG TABLET PO SCH (17:08)
[2019-09-07] MEDS: MONTELUKAST SODIUM 10 MG TABLET PO SCH (21:56)
[2019-09-07] MEDS: ACETAMINOPHEN 325 MG TABLET PO PRN (22:11)
[2019-09-08] MEDS: CHLORPHENIRAMINE MALEATE 4 MG TABLET PO SCH (03:26)
[2019-09-08 05:59] LABS: ABSOLUTE LYMPHOCYTES (AUTO) 0.8 10^3/uL (0.5-4.7); ABSOLUTE MONOCYTES (AUTO) 0.5 10^3/uL (0.1-1.4); ABSOLUTE NEUT (AUTO) 4.9 10^3/uL (1.7-8.2); BASOPHILS % (AUTO) 0.4 % (0-2); HEMATOCRIT 37.9 % (36.0-47.0); HEMOGLOBIN 12.7 g/dL (12.0-15.5); LYMPHOCYTES % (AUTO) 13.1 % (13-45); MEAN CORPUSCULAR HEMOGLOBIN 27.2 pg (27.0-33.4); MEAN CORPUSCULAR HGB CONC 33.4 g/dL (32.0-36.0); MEAN CORPUSCULAR VOLUME 82 fl (80-97); MONOCYTES % (AUTO) 8.2 % (3-13); PLATELET COUNT 200 10^3/uL (150-450); RED BLOOD COUNT 4.65 10^6/uL (3.72-5.28); RED CELL DISTRIBUTION WIDTH 15.5 % (11.5-14.0); SEGMENTED NEUTROPHILS % (AUTO) 78.3 % (42-78); TOTAL CELLS COUNTED % (AUTO) 100 %; WHITE BLOOD COUNT 6.3 10^3/uL (4.0-10.5)
[2019-09-08 06:19] LABS: ANION GAP 6 (5-19); BLOOD UREA NITROGEN 18 mg/dL (7-20); CALCIUM 8.6 mg/dL (8.4-10.2); CARBON DIOXIDE 30 mmol/L (22-30); CHLORIDE 103 mmol/L (98-107); GLUCOSE 110 mg/dL (75-110); POTASSIUM 4.4 mmol/L (3.6-5.0)
[2019-09-08] MEDS: HEPARIN SOD (PORCINE) 5,000 UNIT/ML 1 ML VIAL SUBCUT SCH ×3 (06:45→21:41)
[2019-09-08] MEDS: ACETAMINOPHEN 325 MG TABLET PO PRN (06:47)
[2019-09-08] MEDS: IPRATROPIUM/ALBUTEROL 0.5-2.5 MG/3 ML AMPUL NEB SCH (08:43)
[2019-09-08] MEDS: LEVOFLOXACIN 750 MG/D5W RTU 750 MG/150 ML RTUPB IV SCH (09:24)
[2019-09-08] MEDS: FAMOTIDINE 20 MG TABLET PO SCH ×2 (09:24→21:41)
[2019-09-08] MEDS: GUAIFENESIN SYRP 200 MG/10 ML UDC PO PRN ×2 (09:24→20:14)
[2019-09-08] MEDS: PREDNISONE 20 MG TABLET PO SCH (09:24)
[2019-09-08] MEDS: FLUTICASONE NASAL SPRAY 50 MCG/SPRY 120 SPRAY/16 GM NASL SCH ×2 (09:27→21:40)
[2019-09-08] MEDS: TAMOXIFEN CITRATE 10 MG TABLET PO SCH (09:27)
[2019-09-08] MEDS: OXYCODONE-ACETAMINOPHEN 5-325 MG TABLET PO PRN ×2 (10:34→20:13)
--- NOTE | 2019-09-08 11:03 | PDOC PROGRESS REPORT ---
Subjective Progress Note for:: 09/08/19 Subjective:: NARENDRA REECE is a 49 year old female with a past medical history of morbid obesity with a BMI of 42, obstructive sleep apnea, COPD and bronchitis. She presents with 1 month of persistent shortness of breath and paroxysms of productive cough. She has had 3 rounds of antibiotics with minimal relief prompting her to seek evaluation emergency room where she is found to have bilateral wheezing, tachypnea with retractions hypoxia by pulse oximetry and ABG. She received several treatments of albuterol with Atrovent, magnesium and steroids with minimal improvement. She is referred to the hospitalist for admission. She does admit to smoking and perfumes which are triggers of shortness of breath with wheeze and cough she also admits to symptoms worsening at night and some acid reflux 09/08/2019. Saw patient this morning while receiving her nebs, stating that she gets easily short of breath once off of oxygen, denies any chest pain, nausea, vomiting, diarrhea, constipation or any urinary symptoms. Still has significant wheezing on lung examination. Reason For Visit: [employer] EXAC[employer]ATION HYPOXIA Physical Exam Vital Signs: Temp Pulse Resp BP Pulse Ox 98.5 F 98 18 118/67 91 L 09/08/19 08:18 09/08/19 08:43 09/08/19 08:43 09/08/19 08:18 09/08/19 08:43 Intake & Output 09/07/19 09/08/19 09/09/19 06:59 06:59 06:59 Intake Total 70 1300 Output Total 0 Balance 70 1300 Weight 114.3 kg 116 kg General appearance: PRESENT: morbidly obese Head exam: PRESENT: atraumatic, normocephalic Respiratory exam: PRESENT: prolonged expiratory phas, wheezes. ABSENT: rales, rhonchi GI/Abdominal exam: PRESENT: normal bowel sounds, soft. ABSENT: distended, guarding, mass, organolmegaly, rebound, tenderness Neurological exam: PRESENT: alert, awake, oriented to person, oriented to place, oriented to time, oriented to situation, CN II-XII grossly intact. ABSENT: motor sensory deficit Results Laboratory Results: 09/08/19 04:56 09/08/19 04:56 09/08/19 09/08/19 04:56 04:56 WBC 6.3 RBC 4.65 Hgb 12.7 Hct 37.9 MCV 82 MCH 27.2 MCHC 33.4 RDW 15.5 H Plt Count 200 Seg Neutrophils % 78.3 H Sodium 138.7 Potassium 4.4 Chloride 103 Carbon Dioxide 30 Anion Gap 6 BUN 18 Creatinine 0.68 Est GFR ( Amer) > 60 Glucose 110 Calcium 8.6 09/06/19 17:26 NT-Pro-B Natriuret Pep 124 Impressions: Chest X-Ray 09/06/19 17:12 IMPRESSION: REACTIVE AIRWAY DISEASE VERSUS VIRAL SYNDROME. NO CONSOLIDATION. Transvaginal US 09/06/19 17:12 IMPRESSION: 1. 4.3 cm simple ovarian cyst. If patient is pre-menopausal, no follow-up imaging is recommended; if patient is post-menopausal, recommend pelvic US follow-up annually. Reference: Radiology 2010 Mar;256(3):679-40 2. Thickened endometrium, but no focal lesions. 3. Right ovary could not be visualized Assessment and Plan - Diagnosis (1) Acute respiratory failure with hypoxia Is this a current diagnosis for this admission?: Yes Plan: Still oxygen dependent. SPO2 WNL on 2 L. Due to acute COPD exacerbation complicated by acute bronchitis. Continue duo nebs, incentive spirometry, flutter valve, empiric IV antibiotics, PRN BiPAP, ICS, LAMA, LABA. (2) Acute bronchitis Is this a current diagnosis for this admission?: Yes Plan: Still complaining of persistent productive cough. Day 2 IV antibiotics. Day 2 IV levofloxacin. Sputum culture not collected yet. (3) Asthma Is this a current diagnosis for this admission?: Yes Plan: Acutely exacerbated. Plan as per #1. (4) GERD (gastroesophageal reflux disease) Is this a current diagnosis for this admission?: Yes Plan: Continue to blockers. Outpatient PCP and gastroenterology follow-up. (5) Ovarian cyst, left Is this a current diagnosis for this admission?: Yes Plan: 09/06/2019. Pelvic ultrasound 4.3 cm simple ovarian cyst. Continue supportive measures. Outpatient [facility] follow-up. (6) Sleep apnea Is this a current diagnosis for this admission?: Yes Plan: Nocturnal CPAP. Outpatient nocturnal polysomnography.
[2019-09-08] MEDS ORDERED: METOPROLOL TARTRATE PF/INJ 5 MG/5 ML SDV IV PRN (11:32)
[2019-09-08] MEDS ORDERED: HYDRALAZINE HCL INJ/PF 20 MG/1 ML SDV IV PRN (11:52)
[2019-09-08] MEDS ORDERED: IPRATROPIUM/ALBUTEROL 0.5-2.5 MG/3 ML AMPUL NEB SCH (14:00)
[2019-09-08] MEDS: IPRATROPIUM BROMIDE 0.02% NEB 0.5 MG/2.5 ML AMPUL NEB SCH ×2 (14:25→19:27)
[2019-09-08] MEDS: LEVALBUTEROL HCL NEB 1.25 MG/3 ML AMPUL NEB SCH ×2 (14:25→19:27)
[2019-09-08] MEDS: METHYLPREDNISOLONE INJ 40 MG/1 ML SDV IV SCH ×2 (15:40→21:41)
[2019-09-08] MEDS: MONTELUKAST SODIUM 10 MG TABLET PO SCH (21:41)
[2019-09-09] MEDS: OXYCODONE-ACETAMINOPHEN 5-325 MG TABLET PO PRN ×3 (03:28→21:41)
[2019-09-09] MEDS: GUAIFENESIN SYRP 200 MG/10 ML UDC PO PRN ×2 (03:28→09:42)
[2019-09-09 05:22] LABS: ABSOLUTE LYMPHOCYTES (AUTO) 0.6 10^3/uL (0.5-4.7); ABSOLUTE MONOCYTES (AUTO) 0.3 10^3/uL (0.1-1.4); ABSOLUTE NEUT (AUTO) 4.2 10^3/uL (1.7-8.2); BASOPHILS % (AUTO) 0.2 % (0-2); HEMOGLOBIN 12.8 g/dL (12.0-15.5); LYMPHOCYTES % (AUTO) 12.4 % (13-45); MEAN CORPUSCULAR HEMOGLOBIN 27.2 pg (27.0-33.4); MEAN CORPUSCULAR HGB CONC 33.6 g/dL (32.0-36.0); MEAN CORPUSCULAR VOLUME 81 fl (80-97); MONOCYTES % (AUTO) 6.6 % (3-13); PLATELET COUNT 204 10^3/uL (150-450); RED BLOOD COUNT 4.71 10^6/uL (3.72-5.28); RED CELL DISTRIBUTION WIDTH 15.8 % (11.5-14.0); SEGMENTED NEUTROPHILS % (AUTO) 80.8 % (42-78); TOTAL CELLS COUNTED % (AUTO) 100 %; WHITE BLOOD COUNT 5.2 10^3/uL (4.0-10.5)
[2019-09-09 05:43] LABS: ANION GAP 9 (5-19); BLOOD UREA NITROGEN 13 mg/dL (7-20); CALCIUM 8.4 mg/dL (8.4-10.2); CARBON DIOXIDE 29 mmol/L (22-30); CHLORIDE 100 mmol/L (98-107); GLUCOSE 138 mg/dL (75-110); POTASSIUM 4.1 mmol/L (3.6-5.0)
[2019-09-09] MEDS: METHYLPREDNISOLONE INJ 40 MG/1 ML SDV IV SCH ×2 (06:24→13:52)
[2019-09-09] MEDS: HEPARIN SOD (PORCINE) 5,000 UNIT/ML 1 ML VIAL SUBCUT SCH ×3 (06:25→21:43)
[2019-09-09] MEDS: LEVALBUTEROL HCL NEB 1.25 MG/3 ML AMPUL NEB SCH ×3 (08:30→20:59)
[2019-09-09] MEDS: IPRATROPIUM BROMIDE 0.02% NEB 0.5 MG/2.5 ML AMPUL NEB SCH ×3 (08:30→20:59)
[2019-09-09] MEDS: FAMOTIDINE 20 MG TABLET PO SCH ×2 (09:42→21:42)
[2019-09-09] MEDS: LEVOFLOXACIN 750 MG/D5W RTU 750 MG/150 ML RTUPB IV SCH (09:42)
[2019-09-09] MEDS: FLUTICASONE NASAL SPRAY 50 MCG/SPRY 120 SPRAY/16 GM NASL SCH ×2 (09:42→21:42)
[2019-09-09] MEDS: TAMOXIFEN CITRATE 10 MG TABLET PO SCH (09:42)
--- NOTE | 2019-09-09 10:07 | PDOC PROGRESS REPORT ---
Subjective Progress Note for:: 09/09/19 Subjective:: NARENDRA REECE is a 49 year old female with a past medical history of morbid obesity with a BMI of 42, obstructive sleep apnea, COPD and bronchitis. She presents with 1 month of persistent shortness of breath and paroxysms of productive cough. She has had 3 rounds of antibiotics with minimal relief prompting her to seek evaluation emergency room where she is found to have bilateral wheezing, tachypnea with retractions hypoxia by pulse oximetry and ABG. She received several treatments of albuterol with Atrovent, magnesium and steroids with minimal improvement. She is referred to the hospitalist for admission. She does admit to smoking and perfumes which are triggers of shortness of breath with wheeze and cough she also admits to symptoms worsening at night and some acid reflux 09/08/2019. Saw patient this morning while receiving her nebs, stating that she gets easily short of breath once off of oxygen, denies any chest pain, nausea, vomiting, diarrhea, constipation or any urinary symptoms. Still has significant wheezing on lung examination. 09/09/2019. No acute events overnight. Patient is still dependent on supplemental oxygen. Wheezing improved. Still having persistent productive cough. Denies any chest pain, nausea, vomiting, diarrhea, constipation or any urinary symptoms. Will consult discharge planning for home oxygen if not a candidate will have to keep her another day. 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 ABSENT: rales, rhonchi Cardiovascular exam: PRESENT: RRR. ABSENT: diastolic murmur, rubs, systolic murmur GI/Abdominal exam: PRESENT: normal bowel sounds, soft. ABSENT: distended, guarding, mass, organolmegaly, rebound, tenderness Neurological exam: PRESENT: alert, awake, oriented to person, oriented to place, oriented to time, oriented to situation, CN II-XII grossly intact. ABSENT: motor sensory deficit Results Laboratory Results: 09/09/19 03:55 09/09/19 03:55 09/09/19 09/09/19 03:55 03:55 WBC 5.2 RBC 4.71 Hgb 12.8 Hct 38.0 MCV 81 MCH 27.2 MCHC 33.6 RDW 15.8 H Plt Count 204 Seg Neutrophils % 80.8 H Sodium 138.4 Potassium 4.1 Chloride 100 Carbon Dioxide 29 Anion Gap 9 BUN 13 Creatinine 0.57 Est GFR ( Amer) > 60 Glucose 138 H Calcium 8.4 09/06/19 17:26 NT-Pro-B Natriuret Pep 124 Impressions: Chest X-Ray 09/06/19 17:12 IMPRESSION: REACTIVE AIRWAY DISEASE VERSUS VIRAL SYNDROME. NO CONSOLIDATION. Transvaginal US 09/06/19 17:12 IMPRESSION: 1. 4.3 cm simple ovarian cyst. If patient is pre-menopausal, no follow-up imaging is recommended; if patient is post-menopausal, recommend pelvic US follow-up annually. Reference: Radiology 2010 Mar;256(3):543-82 2. Thickened endometrium, but no focal lesions. 3. Right ovary could not be visualized Assessment and Plan - Diagnosis (1) Acute respiratory failure with hypoxia Is this a current diagnosis for this admission?: Yes Plan: Still oxygen dependent. SPO2 WNL on 2 L. Due to acute COPD exacerbation complicated by acute bronchitis. Continue duo nebs, incentive spirometry, flutter valve, empiric IV antibiotics, PRN BiPAP, ICS, LAMA, LABA. (2) Acute bronchitis Is this a current diagnosis for this admission?: Yes Plan: Still complaining of persistent productive cough. Day 3 IV antibiotics. Day 3 IV levofloxacin. Sputum culture pending. (3) Asthma Is this a current diagnosis for this admission?: Yes Plan: Acutely exacerbated. Plan as per #1. (4) GERD (gastroesophageal reflux disease) Is this a current diagnosis for this admission?: Yes Plan: Continue to blockers. Outpatient PCP and gastroenterology follow-up. (5) Ovarian cyst, left Is this a current diagnosis for this admission?: Yes Plan: 09/06/2019. Pelvic ultrasound 4.3 cm simple ovarian cyst. Continue supportive measures. Outpatient RESEARCH INTERN follow-up. (6) Sleep apnea Is this a current diagnosis for this admission?: Yes Plan: Nocturnal CPAP. Outpatient nocturnal polysomnography.
[2019-09-09] MEDS: ACETAMINOPHEN 325 MG TABLET PO PRN (13:52)
[2019-09-09] MEDS: METHYLPREDNISOLONE INJ 125 MG/2 ML SDV IV SCH (21:42)
[2019-09-09] MEDS: MONTELUKAST SODIUM 10 MG TABLET PO SCH (21:42)
[2019-09-09] MEDS ORDERED: METHYLPREDNISOLONE INJ 40 MG/1 ML SDV IV SCH (22:00)
[2019-09-10] MEDS: GUAIFENESIN SYRP 200 MG/10 ML UDC PO PRN ×3 (05:02→21:48)
[2019-09-10] MEDS: METHYLPREDNISOLONE INJ 125 MG/2 ML SDV IV SCH ×3 (05:05→21:49)
[2019-09-10] MEDS: HEPARIN SOD (PORCINE) 5,000 UNIT/ML 1 ML VIAL SUBCUT SCH ×3 (05:06→21:50)
[2019-09-10] MEDS: ACETAMINOPHEN 325 MG TABLET PO PRN (05:12)
[2019-09-10 05:21] LABS: HEMATOCRIT 37.8 % (36.0-47.0); HEMOGLOBIN 12.6 g/dL (12.0-15.5); MEAN CORPUSCULAR HEMOGLOBIN 27.1 pg (27.0-33.4); MEAN CORPUSCULAR HGB CONC 33.4 g/dL (32.0-36.0); MEAN CORPUSCULAR VOLUME 81 fl (80-97); PLATELET COUNT 207 10^3/uL (150-450); RED BLOOD COUNT 4.66 10^6/uL (3.72-5.28); WHITE BLOOD COUNT 8.4 10^3/uL (4.0-10.5)
[2019-09-10 05:46] LABS: ANION GAP 5 (5-19); BLOOD UREA NITROGEN 14 mg/dL (7-20); CALCIUM 8.5 mg/dL (8.4-10.2); CARBON DIOXIDE 31 mmol/L (22-30); CHLORIDE 101 mmol/L (98-107); GLUCOSE 151 mg/dL (75-110); POTASSIUM 4.4 mmol/L (3.6-5.0)
[2019-09-10] MEDS: IPRATROPIUM BROMIDE 0.02% NEB 0.5 MG/2.5 ML AMPUL NEB SCH ×3 (08:56→20:28)
[2019-09-10] MEDS: LEVALBUTEROL HCL NEB 1.25 MG/3 ML AMPUL NEB SCH ×3 (08:56→20:28)
[2019-09-10] MEDS: FAMOTIDINE 20 MG TABLET PO SCH ×2 (09:05→21:49)
[2019-09-10] MEDS: TAMOXIFEN CITRATE 10 MG TABLET PO SCH (09:05)
[2019-09-10] MEDS: LEVOFLOXACIN 750 MG TABLET PO SCH (09:05)
[2019-09-10] MEDS: FLUTICASONE NASAL SPRAY 50 MCG/SPRY 120 SPRAY/16 GM NASL SCH ×2 (09:05→21:54)
[2019-09-10] MEDS: OXYCODONE-ACETAMINOPHEN 5-325 MG TABLET PO PRN ×2 (11:35→21:49)
--- NOTE | 2019-09-10 14:12 | PDOC PROGRESS REPORT ---
Subjective Progress Note for:: 09/10/19 Reason For Visit: COPD EXACERBATION,HYPOXIA 09/10/2019 Patient was admitted to the hospital 3 days ago for shortness of breath and a cough, she has failed 3 rounds of antibiotics as an outpatient for upper respiratory illness Physical Exam Vital Signs: Temp Pulse Resp BP Pulse Ox 98.6 F 74 18 129/89 H 90 L 09/10/19 11:27 09/10/19 13:41 09/10/19 13:41 09/10/19 11:27 09/10/19 13:41 Intake & Output 09/09/19 09/10/19 09/11/19 06:59 06:59 06:59 Intake Total 1550 1640 Balance 1550 1640 Weight 119.6 kg 115.7 kg General appearance: PRESENT: mild distress, other - She admits she is feeling much better than on admission Respiratory exam: PRESENT: wheezes Cardiovascular exam: PRESENT: RRR. ABSENT: diastolic murmur, rubs, systolic murmur Neurological exam: PRESENT: alert, awake, oriented to person, oriented to place, oriented to time, oriented to situation, CN II-XII grossly intact. ABSENT: motor sensory deficit Psychiatric exam: PRESENT: appropriate affect, normal mood. ABSENT: homicidal ideation, suicidal ideation Results Laboratory Results: 09/10/19 04:49 09/10/19 04:49 09/10/19 09/10/19 04:49 04:49 WBC 8.4 RBC 4.66 Hgb 12.6 Hct 37.8 MCV 81 MCH 27.1 MCHC 33.4 RDW 16.0 H Plt Count 207 Sodium 137.4 Potassium 4.4 Chloride 101 Carbon Dioxide 31 H Anion Gap 5 BUN 14 Creatinine 0.50 L Est GFR ( Amer) > 60 Glucose 151 H Calcium 8.5 09/06/19 17:26 NT-Pro-B Natriuret Pep 124 Impressions: Chest X-Ray 09/06/19 17:12 IMPRESSION: REACTIVE AIRWAY DISEASE VERSUS VIRAL SYNDROME. NO CONSOLIDATION. Transvaginal US 09/06/19 17:12 IMPRESSION: 1. 4.3 cm simple ovarian cyst. If patient is pre-menopausal, no follow-up imaging is recommended; if patient is post-menopausal, recommend pelvic US follow-up annually. Reference: Radiology 2010 Mar;256(3):943-54 2. Thickened endometrium, but no focal lesions. 3. Right ovary could not be visualized Assessment and Plan - Diagnosis (1) Acute bronchitis Is this a current diagnosis for this admission?: Yes (2) Acute respiratory failure with hypoxia Is this a current diagnosis for this admission?: Yes (3) Asthma Is this a current diagnosis for this admission?: Yes (4) Sleep apnea Is this a current diagnosis for this admission?: Yes - Plan Summary Summary: 09/10/2019 To 97.5 pulse between 62 and 78 blood pressure 136/73 O2 sat 93% on 2 L nasal cannula Patient does not use oxygen at home. Patient currently on IV Levaquin as well as Solu-Medrol 60 mg IV every 8 hours Chest x-ray shows either restrictive airway disease or viral illness Patient does have CPAP lives with home with her mother Will DC patient to home on p.o. Levaquin and probably a Medrol Dosepak in the next 48 hours Patient is much improved over admission - Time Time Spent with patient: 25-34 minutes
[2019-09-10] MEDS: MONTELUKAST SODIUM 10 MG TABLET PO SCH (21:49)
[2019-09-11] MEDS: METHYLPREDNISOLONE INJ 125 MG/2 ML SDV IV SCH (05:20)
[2019-09-11] MEDS: HEPARIN SOD (PORCINE) 5,000 UNIT/ML 1 ML VIAL SUBCUT SCH (05:21)
[2019-09-11] MEDS: IPRATROPIUM BROMIDE 0.02% NEB 0.5 MG/2.5 ML AMPUL NEB SCH ×2 (08:13→13:52)
[2019-09-11] MEDS: LEVALBUTEROL HCL NEB 1.25 MG/3 ML AMPUL NEB SCH ×2 (08:13→13:52)
[2019-09-11] MEDS: LEVOFLOXACIN 750 MG TABLET PO SCH (08:14)
[2019-09-11] MEDS: FLUTICASONE NASAL SPRAY 50 MCG/SPRY 120 SPRAY/16 GM NASL SCH (09:50)
[2019-09-11] MEDS: GUAIFENESIN SYRP 200 MG/10 ML UDC PO PRN (09:50)
[2019-09-11] MEDS: OXYCODONE-ACETAMINOPHEN 5-325 MG TABLET PO PRN (09:50)
[2019-09-11] MEDS: FAMOTIDINE 20 MG TABLET PO SCH (09:51)
[2019-09-11] MEDS: TAMOXIFEN CITRATE 10 MG TABLET PO SCH (09:51)
--- NOTE | 2019-09-11 11:20 | PDOC DISCHARGE SUMMARY ---
Impression - Admit/DC Date/PCP Admission Date/Primary Care Provider: 09/09/19 14:13 MARQUEZ PANIAGUA Discharge Date: 09/11/19 - Discharge Diagnosis (1) Acute bronchitis Is this a current diagnosis for this admission?: Yes (2) Acute respiratory failure with hypoxia Is this a current diagnosis for this admission?: Yes (3) Asthma Is this a current diagnosis for this admission?: Yes (4) Sleep apnea Is this a current diagnosis for this admission?: Yes - Assessment Summary: 09/10/2019 To 97.5 pulse between 62 and 78 blood pressure 136/73 O2 sat 93% on 2 L nasal cannula Patient does not use oxygen at home. Patient currently on IV Levaquin as well as Solu-Medrol 60 mg IV every 8 hours Chest x-ray shows either restrictive airway disease or viral illness Patient does have CPAP lives with home with her mother Will DC patient to home on p.o. Levaquin and probably a Medrol Dosepak in the next 48 hours Patient is much improved over admission 09/11/2019 Patient's vital signs are stable temperature 97.4 pulse 62 blood pressure 135/65 O2 sats 96% on 2 L ever patient did not use oxygen most of all day yesterday Patient's white count is normal Electrolytes are normal I have written a prescription for Levaquin 750 mg 7 tablets which will complete a 10-day course. She already has a tapering dosage of prednisone starting at 60 mg for multiple days. She is to have 3 more days of strict bedrest just like she has been here. Patient and I discussed her care for several minutes with no evidence of shortness of breath patient was ambulating in the room on room air - Additional Information Resuscitation Status: Full Code Discharge Diet: As Tolerated Discharge Activity: Bedrest Referrals: POLINA ZHANG FNP-C [Primary Care Provider] - Follow up as needed Prescriptions: Levofloxacin [Levaquin 750 mg Tablet] 750 mg PO QAM 7 Days #7 tablet Home Medications: Albuterol Sulfate [Albuterol Sulfate Hfa] 2 puff IH Q6HP PRN 09/07/19 Albuterol Sulfate [Ventolin 0.083% Neb 2.5 mg/3 mL Ampul] 1 vial NEB RTQ4HP PRN 09/07/19 Cetirizine HCl [Zyrtec 10 mg Tablet] 10 mg PO QHS 09/07/19 Meloxicam [Mobic 15 mg Tablet] 15 mg PO DAILYP PRN 09/07/19 Montelukast Sodium [Singulair 10 mg Tablet] 10 mg PO QHS 09/07/19 Prednisone [Deltasone 20 mg Tablet] 20 mg PO ASDIR PRN MDD filled 09/03 for 12 day taper 09/07/19 Tamoxifen Citrate [Nolvadex 10 mg Tablet] 20 mg PO QHS 09/07/19 Ibuprofen [Motrin 800 mg Tablet] 800 mg PO Q8HP PRN 09/09/19 Acetaminophen [Tylenol 325 mg Tablet] 650 mg PO Q4HP PRN tablet 09/11/19 Guaifenesin [Robitussin Syrup 200 mg/10 ml Ud Cup] 200 mg PO Q4HP PRN udc 09/11/19 Levofloxacin [Levaquin 750 mg Tablet] 750 mg PO QAM 7 Days #7 tablet 09/11/19 History of Present Illiness History of Present Illness: NARENDRA REECE is a 49 year old female Physical Exam Vital Signs: Temp Pulse Resp BP Pulse Ox 98.0 F 66 18 134/72 H 89 L 09/11/19 07:15 09/11/19 08:13 09/11/19 08:13 09/11/19 07:15 09/11/19 08:13 Intake & Output 09/10/19 09/11/19 09/12/19 06:59 06:59 06:59 Intake Total 1640 880 Balance 1640 880 Weight 115.7 kg 115.5 kg Results Laboratory Results: WBC 8.4 10^3/uL (4.0-10.5) 09/10/19 04:49 RBC 4.66 10^6/uL (3.72-5.28) 09/10/19 04:49 Hgb 12.6 g/dL (12.0-15.5) 09/10/19 04:49 Hct 37.8 % (36.0-47.0) 09/10/19 04:49 MCV 81 fl (80-97) 09/10/19 04:49 MCH 27.1 pg (27.0-33.4) 09/10/19 04:49 MCHC 33.4 g/dL (32.0-36.0) 09/10/19 04:49 RDW 16.0 % (11.5-14.0) H 09/10/19 04:49 Plt Count 207 10^3/uL (150-450) 09/10/19 04:49 Lymph % (Auto) 12.4 % (13-45) L 09/09/19 03:55 Lucas % (Auto) 6.6 % (3-13) 09/09/19 03:55 Eos % (Auto) 0.0 % (0-6) 09/09/19 03:55 Baso % (Auto) 0.2 % (0-2) 09/09/19 03:55 Absolute Neuts (auto) 4.2 10^3/uL (1.7-8.2) 09/09/19 03:55 Absolute Lymphs (auto) 0.6 10^3/uL (0.5-4.7) 09/09/19 03:55 Absolute Monos (auto) 0.3 10^3/uL (0.1-1.4) 09/09/19 03:55 Absolute Eos (auto) 0.0 10^3/uL (0.0-0.6) 09/09/19 03:55 Absolute Basos (auto) 0.0 10^3/uL (0.0-0.2) 09/09/19 03:55 Seg Neutrophils % 80.8 % (42-78) H 09/09/19 03:55 Carbonic Acid 1.03 mmol/L (1.05-1.35) L 09/07/19 01:10 HCO3/H2CO3 Ratio 20:1 09/07/19 01:10 ABG pH 7.41 (7.35-7.45) 09/07/19 01:10 ABG pCO2 34.3 mmHg (35-45) L 09/07/19 01:10 ABG pO2 63.2 mmHg (80-100) L 09/07/19 01:10 ABG HCO3 21.1 mmol/L (20-24) 09/07/19 01:10 ABG Total CO2 22.1 mmol/L (21-25) 09/07/19 01:10 ABG O2 Saturation 92.5 % (94-98) L 09/07/19 01:10 ABG Base Excess -2.9 mmol/L 09/07/19 01:10 FiO2 ROOM AIR 09/07/19 01:10 Sodium 137.4 mmol/L (137-145) 09/10/19 04:49 Potassium 4.4 mmol/L (3.6-5.0) 09/10/19 04:49 Chloride 101 mmol/L (98-107) 09/10/19 04:49 Carbon Dioxide 31 mmol/L (22-30) H 09/10/19 04:49 Anion Gap 5 (5-19) 09/10/19 04:49 BUN 14 mg/dL (7-20) 09/10/19 04:49 Creatinine 0.50 mg/dL (0.52-1.25) L 09/10/19 04:49 Est GFR ( Amer) > 60 (>60) 09/10/19 04:49 Est GFR (MDRD) Non-Af > 60 (>60) 09/10/19 04:49 Glucose 151 mg/dL (75-110) H 09/10/19 04:49 Calcium 8.5 mg/dL (8.4-10.2) 09/10/19 04:49 Total Bilirubin 0.4 mg/dL (0.2-1.3) 09/06/19 17:26 Direct Bilirubin 0.3 mg/dL (0.0-0.4) 09/06/19 17:26 Neonat Total Bilirubin Not Reportable 09/06/19 17:26 Neonat Direct Bilirubin Not Reportable 09/06/19 17:26 Neonat Indirect Bili Not Reportable 09/06/19 17:26 AST 38 U/L (14-36) H 09/06/19 17:26 ALT 18 U/L (<35) 09/06/19 17:26 Alkaline Phosphatase 62 U/L (38-126) 09/06/19 17:26 NT-Pro-B Natriuret Pep 124 pg/mL (<125) 09/06/19 17:26 Total Protein 7.9 g/dL (6.3-8.2) 09/06/19 17:26 Albumin 4.1 g/dL (3.5-5.0) 09/06/19 17:26 Lipase 82.5 U/L (23-300) 09/06/19 17:26 Urine Color YELLOW 09/06/19 17:26 Urine Appearance CLEAR 09/06/19 17:26 Urine pH 6.0 (5.0-9.0) 09/06/19 17:26 Ur Specific Ideal 1.015 09/06/19 17:26 Urine Protein 30 mg/dL (NEGATIVE) H 09/06/19 17:26 Urine Glucose (UA) NEGATIVE mg/dL (NEGATIVE) 09/06/19 17:26 Urine Ketones NEGATIVE mg/dL (NEGATIVE) 09/06/19 17:26 Urine Blood MODERATE (NEGATIVE) H 09/06/19 17:26 Urine Nitrite (Reflex) NEGATIVE (NEGATIVE) 09/06/19 17:26 Urine Bilirubin NEGATIVE (NEGATIVE) 09/06/19 17:26 Urine Urobilinogen NEGATIVE mg/dL (<2.0) 09/06/19 17:26 Leukocyte Esterase Rfl NEGATIVE (NEGATIVE) 09/06/19 17:26 Urine RBC (Auto) 6 /HPF 09/06/19 17:26 Urine WBC (Reflex) 1 /HPF 09/06/19 17:26 Squamous Epi Cells Auto <1 /HPF 09/06/19 17:26 Urine Mucus (Auto) RARE /LPF 09/06/19 17:26 Urine Ascorbic Acid NEGATIVE (NEGATIVE) 09/06/19 17:26 Urine HCG, Qual NEGATIVE (NEGATIVE) 09/06/19 17:26 Influenza A (Rapid) NEGATIVE (NEGATIVE) 09/06/19 20:57 Influenza B (Rapid) NEGATIVE (NEGATIVE) 09/06/19 20:57 09/06/19 17:26 NT-Pro-B Natriuret Pep 124 Impressions: Chest X-Ray 09/06/19 17:12 IMPRESSION: REACTIVE AIRWAY DISEASE VERSUS VIRAL SYNDROME. NO CONSOLIDATION. Transvaginal US 09/06/19 17:12 IMPRESSION: 1. 4.3 cm simple ovarian cyst. If patient is pre-menopausal, no follow-up imaging is recommended; if patient is post-menopausal, recommend pelvic US follow-up annually. Reference: Radiology 2010 Mar;256(3):943-54 2. Thickened endometrium, but no focal lesions. 3. Right ovary could not be visualized Stroke Is this a Stroke Patient?: No Acute Heart Failure - Is this a Heart Failure Patient?: No
[2019-09-11 13:17] VITALS: BP 127/54
== END 2019-09-11 13:56 | disposition home or self-care (01) | DRG 190 ==
LOC: ER 16:16 → EH 09-07 03:39 → 3S 09-07 05:30 → OBSVTOIN 09-09 14:13
PROVIDERS: ADMIT Internal Medicine; ATTEND Internal Medicine
PROC: 5A09357 Assistance with Respiratory Ventilation, Less than 24 Consecutive Hours, Continuous Positive Airway Pressure (ICD-10-PCS; principal; 2019-09-07)
PROC: 3E02340 Introduction of Influenza Vaccine into Muscle, Percutaneous Approach (ICD-10-PCS; 2019-09-11)
DX: J44.1 Chronic obstructive pulmonary disease with (acute) exacerbation (principal); J96.01 Acute respiratory failure with hypoxia; Z68.41 Body mass index [BMI] 40.0-44.9, adult; J45.21 Mild intermittent asthma with (acute) exacerbation; J44.0 Chronic obstructive pulmonary disease with (acute) lower respiratory infection; J20.9 Acute bronchitis, unspecified; E66.01 Morbid (severe) obesity due to excess calories; I10 Essential (primary) hypertension; G47.33 Obstructive sleep apnea (adult) (pediatric); K21.9 Gastro-esophageal reflux disease without esophagitis; N83.202 Unspecified ovarian cyst, left side; Z79.899 Other long term (current) drug therapy; Z87.891 Personal history of nicotine dependence; Z88.0 Allergy status to penicillin; Z86.14 Personal history of Methicillin resistant Staphylococcus aureus infection; Z23 Encounter for immunization
CPT/HCPCS: 36415; 71046; 76830; 80048; 80053; 81001; 81025; 82803; 83690; 83880; 85025; 85027; 87070; 87077; 87186; 87205; 87804; 90686; 93976; 94640; 94660; 94667; 94668; 94799; 96365; 96372; 99285; G0378; J1644; J1956; J2920; J2930; J3475; J3490; J7512; J7620